=== PATIENT | female | born 1990 | race Hispanic/Latino ===

== ENCOUNTER 2016-11-23 04:49 | Inpatient (IN) | payer MEDICAID ==
[2016-11-23] MEDS ORDERED: MINERAL OIL PO PRN (05:35)
[2016-11-23] MEDS ORDERED: STADOL IV PRN (05:35)
[2016-11-23] MEDS ORDERED: NARCAN 0.4 MG/1 ML IV PRN (05:35)
[2016-11-23] MEDS ORDERED: BRETHINE IVP PRN (05:35)
[2016-11-23] MEDS ORDERED: PHENERGAN PO PRN (05:35)
[2016-11-23] MEDS ORDERED: ePHEDrine SULFATE IV PRN ×2 (05:35→11:00)
[2016-11-23] MEDS ORDERED: XYLOCAINE 2% INFILTRATI ONE (05:35)
[2016-11-23] MEDS ORDERED: SUBLIMAZE IV PRN (05:35)
[2016-11-23] MEDS ORDERED: BRETHINE SUB-Q PRN (05:35)
[2016-11-23 05:59] LABS: Hematocrit 30.9 % (30.3-42.9); Hemoglobin 10.2 gm/dl (10.1-14.3); Mean Corpuscular HGB Conc 33 % (30-34); Mean Corpuscular Volume 77 fl (79-97); Platelet Count 335 K/mm3 (140-440); Red Blood Count 4.03 M/mm3 (3.65-5.03); White Blood Count 14.6 K/mm3 (4.5-11.0)
[2016-11-23] MEDS ORDERED: PITOCin/NS 30 UNIT/500ML 30 UNITS/500 ML BAG IV SCH ×2 (06:00)
[2016-11-23] MEDS ORDERED: POLYCILLIN/NS 2 GM/100 ML 2 GM/100 ML BAG IV ONE ×2 (06:01→06:38)
[2016-11-23 06:02] LABS: Mean Corpuscular Hemoglobin 25 pg (28-32)
[2016-11-23] MEDS: LACTATED RINGERS 1,000 ML IV SCH ×2 (08:42→22:03)
--- NOTE | 2016-11-23 09:34 | Anesthesia Consultation ---
Anesthesia Consult and Med Hx Date of service: 11/23/16 - Airway Anesthetic Teeth Evaluation: Good ROM Head & Neck: Adequate Mental/Hyoid Distance: Adequate Mallampati Class: Class II Intubation Access Assessment: Probably Good - Pre-Operative Health Status ASA Pre-Surgery Classification: ASA2 Proposed Anesthetic Plan: Epidural, Spinal - Pulmonary Hx Asthma: No COPD: No Hx Pneumonia: No - Cardiovascular System Hx Hypertension: No - Central Nervous System Hx Seizures: No Hx Psychiatric Problems: No - Endocrine Hx Renal Disease: No Hx End Stage Renal Disease: No Hx Hypothyroidism: No Hx Hyperthyroidism: No - Hematic Hx Anemia: No Hx Sickle Cell Disease: No - Other Systems Hx Alcohol Use: No
[2016-11-23] MEDS: POLYCILLIN/NS 1 GM/50 ML 1 GM/50 ML BAG IV SCH ×2 (10:16→17:20)
[2016-11-23] MEDS ORDERED: NARCAN 2 MG/2 ML IV PRN (11:00)
[2016-11-23] MEDS: fentaNYL-BUPIV 2 MCG/ML-0.125% 200 MCG/100 ML BAG EPIDURAL SCH ×2 (11:08→17:57)
[2016-11-23] MEDS ORDERED: XYLOCAINE MPF 2% ONE (18:40)
--- NOTE | 2016-11-23 19:44 | History and Physical Report ---
History of Present Illness Date of examination: 11/23/16 Date of admission: 11/23/16 05:34 Chief complaint: I'm having contractions History of present illness: Patient is a 26 year old ` who presents at 38+ weeks with contractions. Patient has had an uncomplicated course except for presence of a circumvellate placenta found on ultrasound. Past History Past Medical History: no pertinent history Past Surgical History: no surgical history Family/Genetic History: none Social history: - Obstetrical History Expected Date of Delivery: 11/29/16 Actual Gestation: 39 Week(s) 1 Day(s) : 2 Number of Living Children: 1 Medications and Allergies Allergies Allergy/AdvReac Type Severity Reaction Status Date / Time No Known Allergies Allergy Verified 02/10/14 10:58 Home Medications Medication Instructions Recorded Confirmed Last Taken Type Vit-Fe Fumar-FA [ 1 tab PO QDAY 11/23/16 11/23/16 Unknown History Vitamin] Active Meds: Active Medications Butorphanol Tartrate (Stadol) 2 mg IV Q2H PRN PRN Reason: Pain , Severe (7-10) Last Admin: 11/23/16 06:49 Dose: 2 mg Fentanyl (Sublimaze) 100 mcg IV Q2H PRN PRN Reason: Labor Pain Ampicillin Sodium (Polycillin/Ns 1 Gm/50 Ml) 1 gm in 50 mls @ 100 mls/hr IV Q4HR SOPHIA PRN Reason: Protocol Last Admin: 11/23/16 17:20 Dose: 100 mls/hr Lactated Ringer's (Lactated Ringers) 1,000 mls @ 125 mls/hr IV DIRECT SOPHIA Last Admin: 11/23/16 08:42 Dose: 125 mls/hr Oxytocin/Sodium Chloride (Pitocin/Ns 20 Unit/1000ml Drip) 20 units in 1,000 mls @ 125 mls/hr IV DIRECT SOPHIA Oxytocin/Sodium Chloride (Pitocin/Ns 30 Unit/500ml) 30 units in 500 mls @ 1 mls /hr IV TITR SOPHIA; 1 MILLIUNITS/MIN PRN Reason: Protocol Last Titration: 11/23/16 17:21 Dose: 24 milliunits/min, 24 mls/hr Oxytocin/Sodium Chloride (Pitocin/Ns 30 Unit/500ml) 30 units in 500 mls @ 0 mls /hr IV TITR SOPHIA; As Directed PRN Reason: Protocol Fentanyl/Bupivacaine/Sodium Chlor (Fentanyl-Bupiv 2 Mcg/Ml-0.125%) 200 mcg in 100 mls @ 12 mls/hr EPIDURAL TITR SOPHIA PRN Reason: Protocol Last Admin: 11/23/16 17:57 Dose: 12 mls/hr Mineral Oil (Mineral Oil) 30 ml PO QHS PRN PRN Reason: Constipation Naloxone HCl (Narcan 0.4 Mg/1 Ml) 0.1 mg IV Q2MIN PRN PRN Reason: Res Rate </= 8 or 02 SAT < 92% Promethazine HCl (Phenergan) 25 mg PO Q6H PRN PRN Reason: Nausea And Vomiting Review of Systems All systems: negative Gastrointestinal: abdominal pain Genitourinary: contractions - Vital Signs Vital signs: Vital Signs Temp Pulse Resp BP Pulse Ox 98.5 F 91 H 20 140/84 96 11/23/16 05:01 11/23/16 05:01 11/23/16 05:01 11/23/16 05:01 11/23/16 05:01 Temp Pulse Resp BP Pulse Ox 97.6 F 73 18 126/69 100 11/23/16 17:17 11/23/16 19:34 11/23/16 17:17 11/23/16 19:31 11/23/16 19:34 - Physical Exam Breasts: Cardiovascular: Regular rate, Normal S1, Normal S2 Lungs: Positive: Clear to auscultation, Normal air movement Abdomen: Positive: normal appearance, soft, normal bowel sounds. Negative: distention, tenderness Genitourinary (Female): Positive: normal external genitalia, normal perenium Vulva: both: normal Vagina: Positive: normal moisture. Negative: discharge Cervix: Negative: lesion, discharge Uterus: Positive: normal size, normal contour Adnexa: both: normal Anus/Rectum: Positive: normal perianal skin, heme negative. Negative: rectal mass, hemorrhoids Extremities: Deep Tendon Reflex Grade: Normal +2 - Obstetrical Cervical Dilatation: 3 Cervical Effacement Percentage: 70 Uterine Contraction Pattern: Regular Uterine Contraction Intensity: Moderate Results Result Diagrams: 11/23/16 05:45 Abnormal lab results 11/23/16 Range/Units 05:45 WBC 14.6 H (4.5-11.0) K/mm3 MCV 77 L (79-97) fl MCH 25 L (28-32) pg All other labs normal. Assessment and Plan IUP at 39.1 weeks in labor. Admit to L&D. Anticipate .
[2016-11-23] MEDS ORDERED: MARCAINE-EPI/PF 0.5%-1:200,000 INFILTRATI ONE (19:59)
[2016-11-23] MEDS ORDERED: ALUM-MAG HYDROX-SIMETH 200-200-20MG/5ML PO PRN (20:41)
[2016-11-24] MEDS: fentaNYL-BUPIV 2 MCG/ML-0.125% 200 MCG/100 ML BAG EPIDURAL SCH (01:20)
[2016-11-24] MEDS: PITOCin/NS 20 UNIT/1000ML DRIP 20 UNITS/1,000 ML BAG IV SCH ×2 (04:00→05:16)
--- NOTE | 2016-11-24 04:12 | Procedure Note ---
OB Delivery Note - Delivery Date of Delivery: 11/24/16 Surgeon: EFFIE MARTINEZ Estimated blood loss: <100cc - Vaginal Delivery presentation: vertex Delivery position: OA Intrapartum events: PROM->1hr before delivery Delivery induction: none Delivery augmentation: pitocin Delivery monitor: external FHT, external uterine Route of delivery: Delivery placenta: spontaneous Delivery cord: 3 umbilical vessels Episiotomy: none Delivery laceration: none Anesthesia: epidural Delivery comments: Patient progressed to c/c/-1 and began pushing with the baby in occipitoposterior position. In the midst of pushing the vertex rotated to anterior. A viable male was delivered over an intact perineum. The mouth and nose were suctioned on the field. The infant was then placed on the mother's chest. Cord was clamped and cut when it was complete with pulsing. The weight of the infant was 3525 g, 7 lbs. 12 oz. The Apgars were 8 and 9. Placenta was delivered spontaneously and intact with a three-vessel cord. There were no lacerations noted. There was excellent hemostasis at the end of the procedure. The patient tolerated the procedure well. - Infant A at 1 minute: 8 at 5 minutes: 9 Gender: Male (7 pounds 12 ounces)
[2016-11-24] MEDS ORDERED: TUCKS PAD TP PRN (06:09)
[2016-11-24] MEDS ORDERED: SODIUM CHLORIDE FLUSH SYRINGE 10 ML IV NR (06:09)
[2016-11-24] MEDS ORDERED: LANSINOH TP PRN (06:09)
[2016-11-24] MEDS ORDERED: PHENERGAN PO PRN (06:09)
[2016-11-24] MEDS ORDERED: TYLENOL PO PRN (06:09)
[2016-11-24] MEDS ORDERED: DULCOLAX PR PRN (06:09)
[2016-11-24] MEDS ORDERED: MILK OF MAGNESIA PO PRN (06:09)
[2016-11-24] MEDS ORDERED: ZOFRAN IV PRN (06:09)
[2016-11-24] MEDS ORDERED: PHENERGAN PR PRN (06:09)
[2016-11-24] MEDS ORDERED: PITOCin/NS 20 UNIT/1000ML DRIP 20 UNITS/1,000 ML BAG IV SCH (06:09)
[2016-11-24] MEDS ORDERED: BENADRYL PO PRN (06:09)
[2016-11-24] MEDS: MOTRIN PO SCH ×4 (06:19→23:37)
[2016-11-24] MEDS: NORCO 5/325 PO PRN ×2 (09:57→19:54)
[2016-11-24] MEDS: COLACE PO SCH ×2 (09:58→21:42)
[2016-11-24] MEDS: PRENATAL VITAMIN PO SCH (09:58)
[2016-11-24 16:36] LABS: Hematocrit 26.8 % (30.3-42.9); Hemoglobin 8.8 gm/dl (10.1-14.3)
[2016-11-24 21:33] LABS: Hematocrit 25.4 % (30.3-42.9); Hemoglobin 8.1 gm/dl (10.1-14.3); Mean Corpuscular HGB Conc 32 % (30-34); Mean Corpuscular Hemoglobin 25 pg (28-32); Mean Corpuscular Volume 79 fl (79-97); Platelet Count 237 K/mm3 (140-440); Red Blood Count 3.23 M/mm3 (3.65-5.03); Red Cell Distribution Width 15.3 % (13.2-15.2); White Blood Count 13.6 K/mm3 (4.5-11.0)
[2016-11-24 22:05] LABS: Alanine Aminotransferase 9 units/L (7-56)
[2016-11-24 22:49] LABS: Lactate Dehydrogenase 207 units/L (91-180); Uric Acid 5.2 mg/dL (3.5-7.6)
[2016-11-24 22:53] LABS: Bilirubin,Urine NEG (Negative); Blood,Urine SM (Negative); Ketones,Urine NEG (Negative); Leukocyte Esterase,Urine TR (Negative); Mucus,Urine 2+ /HPF; Nitrite,Urine NEG (Negative); Urobilinogen,Urine < 2.0 mg/dL (<2.0)
[2016-11-25] MEDS: NORCO 5/325 PO PRN ×2 (01:30→10:43)
[2016-11-25] MEDS: MOTRIN PO SCH (05:09)
--- NOTE | 2016-11-25 10:25 | Progress Note ---
Subjective Date of service: 11/25/16 Interval history: 1st day after normal vaginal delivery Patient is in the bed, comfortable. Pain is mostly controlled with pain meds. Ambulated well. No residual neurological deficit. No anesthesia complications Objective - Constitutional Vitals: Vital Signs - 12hr 11/25/16 11/25/16 01:14 07:20 Temperature 98.1 F 97.8 F Pulse Rate 84 76 Respiratory 18 20 Rate Blood Pressure 133/83 120/86 - Labs CBC & Chem 7: 11/24/16 21:17 11/24/16 21:17 Labs: Abnormal lab results 11/24/16 11/24/16 11/24/16 Range/Units 16:21 21:17 21:17 WBC 13.6 H (4.5-11.0) K/mm3 RBC 3.23 L (3.65-5.03) M/mm3 Hgb 8.8 L 8.1 L (10.1-14.3) gm/dl Hct 26.8 L 25.4 L (30.3-42.9) % MCH 25 L (28-32) pg RDW 15.3 H (13.2-15.2) % Creatinine 0.5 L (0.7-1.2) mg/dL Lactate Dehydrogenase 207 H (91-180) units/L
[2016-11-25] MEDS: COLACE PO SCH (10:43)
[2016-11-25] MEDS: PRENATAL VITAMIN PO SCH (10:44)
--- NOTE | 2016-11-25 14:22 | Progress Note ---
Assessment and Plan PPD 1 s/p . Doing well. Patient ready for discharge. Will plan to do so today. Subjective - Subjective Date of service: 11/25/16 Interval history: Patient is a 26 year old ` who presents at 38+ weeks with contractions. Patient has had an uncomplicated course except for presence of a circumvellate placenta found on ultrasound. Patient reports: appetite normal, voiding normally, pain well controlled, ambulating normally [place]: doing well Objective - Vital Signs Latest vital signs: Vital Signs Temp Pulse Resp BP 11/25/16 07:20 97.8 F 76 20 120/86 11/25/16 01:14 98.1 F 84 18 133/83 11/24/16 20:25 98.5 F 84 18 139/87 11/24/16 16:45 97.7 F 90 17 153/72 Intake and Output 11/24/16 11/25/16 11/25/16 22:59 06:59 14:59 Intake Total 600 120 360 Output Total 400 Balance 200 120 360 Intake: Oral 360 360 Intake, Free Water 240 120 Output: Urine 400 Void 400 Other: Total, Intake Amount 360 360 Total, Output Amount 400 # Voids Void 1 1 1 - Exam Breasts: Present: deferred Cardiovascular: Present: Regular rate, Normal S1, Normal S2 Lungs: Present: Clear to auscultation, Normal air movement Abdomen: Present: normal appearance, soft, normal bowel sounds Vulva: both: normal Uterus: Present: normal, firm Extremities: Present: normal Deep Tendon Reflex Grade: Normal +2 - Labs Labs: Abnormal lab results 11/24/16 11/24/16 11/24/16 Range/Units 16:21 21:17 21:17 WBC 13.6 H (4.5-11.0) K/mm3 RBC 3.23 L (3.65-5.03) M/mm3 Hgb 8.8 L 8.1 L (10.1-14.3) gm/dl Hct 26.8 L 25.4 L (30.3-42.9) % MCH 25 L (28-32) pg RDW 15.3 H (13.2-15.2) % Creatinine 0.5 L (0.7-1.2) mg/dL Lactate Dehydrogenase 207 H (91-180) units/L
--- NOTE | 2016-11-25 14:25 | Discharge Summary ---
Providers - Providers Date of Admission: 11/23/16 05:34 Date of discharge: 11/25/16 Attending physician: EFFIE MARTINEZ 11/24/16 06:09 Consult to Supervisor Of Instruction [CONS] Routine Reason For Exam: assistance with , SNS Primary care physician: EFFIE MARTINEZ Hospitalization Reason for admission: active labor Delivery: Laceration: none complications: none Discharge diagnosis: IUP at term delivered baby: male Hospital course: Unremarkable Condition at discharge: Good Disposition: DC-01 TO HOME OR SELFCARE Plan - Provider Discharge Summary Additional instructions: [] Smoking cessation referral if applicable(refer to patient education folder for contact #) [] Refer to [facility]'s [facility] Booklet Call your doctor immediately for: * Fever > 100.5 * Heavy vaginal bleeding ( >1 pad per hour) * Severe persistent headache * Shortness of breath * Reddened, hot, painful area to leg or breast * Drainage or odor from incision. * Keep incision clean and dry at all times and follow doctor's instructions regarding bathing/showering - Follow up plan Follow up: EFFIE MARTINEZ MD [Primary Care Provider] - 7 Days
[2016-11-25 17:49] VITALS: BP 120/80
== END 2016-11-25 17:30 | disposition home or self-care (01) | DRG 775 ==
LOC: TRG 04:49 → LD 05:34 → OB 11-24 06:06
PROVIDERS: ADMIT Obstetrics & Gynecology; ATTEND Obstetrics & Gynecology
PROC: 10E0XZZ Delivery of Products of Conception, External Approach (ICD-10-PCS; principal; 2016-11-24)
PROC: 3E0S3CZ (ICD-10-PCS; 2016-11-24)
PROC: 00HU33Z Insertion of Infusion Device into Spinal Canal, Percutaneous Approach (ICD-10-PCS; 2016-11-24)
DX: O42.02 Full-term premature rupture of membranes, onset of labor within 24 hours of rupture (principal); Z3A.39 39 weeks gestation of pregnancy; Z37.0 Single live birth; O43.113 Circumvallate placenta, third trimester
CPT/HCPCS: 36415; 81001; 82565; 83615; 84450; 84460; 84550; 85014; 85018; 85027; 86592; 86706; 86850; 86900; 86901; 99211; A6250; G0463; J0290; J0595; J2590; J7120